=== PATIENT | female | born 1980 | race Caucasian/White ===

== ENCOUNTER → 2016-04-24 | Outpatient (CLI) | payer BC ==
--- NOTE | 2016-04-24 08:45 | US ---
EXAMINATION TYPE: US gallbladder DATE OF EXAM: 04/24/2016 8:28 AM COMPARISON: NONE CLINICAL HISTORY: RUQ Pain R10.11. chest pain, EXAM MEASUREMENTS: Liver Length: 12.6 cm Gallbladder Wall: 0.2 cm CBD: 0.4 cm Right Kidney: 10.4 x 4.7 x 4.6 cm TECHNOLOGIST IMPRESSION: Pancreas: wnl visualized portions. Liver: wnl Gallbladder: No stones seen Evidence for sonographic Gottlieb's sign: No CBD: wnl Right Kidney: No hydronephrosis or masses seen Pancreas is not well seen on images saved, shadowing from overlying bowel gas is present. IMPRESSION: No shadowing mobile gallstones or ultrasound evidence for acute cholecystitis.
--- NOTE | 2016-04-24 10:19 | FL ---
EXAMINATION TYPE: FL barium swallow DATE OF EXAM: 04/24/2016 9:44 AM CLINICAL HISTORY: Chest and right sided upper abdominal pain.. Periodic Dysphagia upper chest. Burnin g epigastric pain or reflux-like symptoms with some relief from medication. Severe upper right chest pain 2 weeks ago. TECHNIQUE: A double contrast esophagram is performed utilizing air and barium. A total of 42 second s of fluoroscopic time was utilized during procedure. COMPARISON: Same day right upper quadrant ultrasound and 2 view chest x-ray. FINDINGS: The esophagus shows normal motility and emptying into the stomach. No evidence of hiatal h ernia or stricture noted. No intraluminal mass or abnormal outpouching/diverticulum is seen. No signi ficant gastroesophageal reflux was seen during real time performance of this study. IMPRESSION: No significant abnormality is seen to account for patient's symptoms.
--- NOTE | 2016-04-24 10:37 | XR ---
EXAMINATION TYPE: XR chest 2V DATE OF EXAM: 04/24/2016 9:28 AM COMPARISON: Chest x-ray 18 May 2014 HISTORY: Chest pain TECHNIQUE: Frontal and lateral views of the chest are obtained. FINDINGS: There is no focal air space opacity, pleural effusion, or pneumothorax seen. The cardiac silhouette size is within normal limits. The osseous structures are intact. IMPRESSION: No acute cardiopulmonary process.
== END | disposition home or self-care (01) ==
LOC: RADUSWWP 08:08
PROVIDERS: ATTEND Family Medicine
DX: R07.9 Chest pain, unspecified (principal); R10.11 Right upper quadrant pain
CPT/HCPCS: 71020; 74220; 76705

== ENCOUNTER → 2016-04-26 | Outpatient (CLI) | payer BC ==
--- NOTE | 2016-04-27 10:16 | ECHOF ---
Referral Reason:R07.89 CHEST PAIN Z12.31 MEASUREMENTS -------- HEIGHT: 170.2 cm WEIGHT: 92.5 kg BP: RVIDd: 2.7 cm (< 3.3) IVSd: 0.8 cm (0.6 - 1.1) LVIDd: 4.2 cm (3.9 - 5.3) LVPWd: 1.1 cm (0.6 - 1.1) IVSs: 1.0 cm LVIDs: 3.2 cm LVPWs: 1.2 cm LA Diam: 3.2 cm (2.7 - 3.8) LAESV Index (A-L): 31.71 ml/m Ao Diam: 3.0 cm (2.0 - 3.7) AV Cusp: 2.1 cm (1.5 - 2.6) LA Diam: 3.2 cm (2.7 - 3.8) MV EXCURSION: 20.824 mm (> 18.000) MV EF SLOPE: 141 mm/s (70 - 150) EPSS: 0.5 cm MV E Osmani: 0.81 m/s MV DecT: 138 ms MV A Osmani: 0.54 m/s MV E/A Ratio: 1.51 RAP: 5.00 mmHg RVSP: 37.16 mmHg FINDINGS -------- Sinus rhythm. This was a technically good study. LV size, wall thickness and systolic function are normal, with an EF greater than 55%. The right ventricle is normal in size. LA is midly dilated 29-33ml/m2. The right atrial size is normal. The aortic valve is trileaflet, and appears structurally normal. No aortic stenosis or regurgitation. Mild mitral regurgitation is present. Mild tricuspid regurgitation present. There is mild pulmonary hypertension. The right ventricular systolic pressure, as measured by Doppler, is 37.16mmHg. There is no pulmonic regurgitation present. The aortic root size is normal. There is no pericardial effusion. CONCLUSIONS -------- 1. LV size, wall thickness and systolic function are normal, with an EF greater than 55%. 2. LA is midly dilated 29-33ml/m2. 3. Mild mitral regurgitation is present. 4. Mild tricuspid regurgitation present. 5. There is mild pulmonary hypertension. 6. The right ventricular systolic pressure, as measured by Doppler, is 37.16mmHg. RN GERIATRIC: Halina Mercado RDCS
--- NOTE | 2016-04-30 06:51 | MM ---
Reason for exam: screening (asymptomatic). Baseline mammogram. History: Family history of breast cancer in maternal grandmother at age 60. Physical Findings: Nurse did not find any significant physical abnormalities on exam. MG Screening Mammo w CAD Bilateral CC and MLO view(s) were taken. There are scattered fibroglandular densities. There is no discrete abnormality. ASSESSMENT: Negative, BI-RAD 1 RECOMMENDATION: Routine screening mammogram of both breasts at age 39. (unless clinical indication to start sooner)
== END | disposition home or self-care (01) ==
LOC: RADMAMWWP 14:12
PROVIDERS: ATTEND Family Medicine
DX: Z12.31 Encounter for screening mammogram for malignant neoplasm of breast (principal); I08.1 Rheumatic disorders of both mitral and tricuspid valves; I27.2 Other secondary pulmonary hypertension
CPT/HCPCS: 93306; G0202

== ENCOUNTER → 2018-10-24 | Outpatient (CLI) | payer BC ==
--- NOTE | 2018-10-24 09:55 | XR ---
EXAMINATION TYPE: XR sinus DATE OF EXAM: 10/24/2018 CLINICAL HISTORY: pain Four views of the paranasal sinuses are submitted. Paranasal sinuses demonstrate normal aeration and development. No air-fluid levels are seen. There is no evidence for mucosal thickening. Nasal sep michael is midline. No evidence for bony destructive process. IMPRESSION: Unremarkable evaluation of the paranasal sinuses.
== END | disposition home or self-care (01) ==
LOC: RADXRMAIN 08:14
PROVIDERS: ATTEND Family Medicine
DX: R51 Headache (principal)
CPT/HCPCS: 70220

== ENCOUNTER 2019-04-07 00:33 | Emergency (ER) | payer BC ==
[2019-04-07 00:43] VITALS: RESP 18
[2019-04-07 01:00] LABS: Appearance,Urine Cloudy (Clear); Bacteria,Urine Rare /hpf; Bilirubin,Urine Negative (Negative); Blood,Urine Moderate (Negative); Color,Urine Yellow; Glucose,Urine (UA) Negative (Negative); Ketones,Urine Negative (Negative); Leukocyte Esterase,Urine Trace (Negative); Mucus,Urine Occasional /hpf; Nitrite,Urine Negative (Negative); PH, Urine 8.5 (5.0-8.0); Protein,Urine 1+ (Negative); RBC,Urine >182 /hpf (0-5); Specific Gravity,Urine 1.024 (1.001-1.035); Squamous Epithelial Cell,Urine 3 /hpf (0-4); Urobilinogen,Urine <2.0 mg/dL (<2.0); WBC,Urine 2 /hpf (0-5)
[2019-04-07] MEDS ORDERED: SODIUM CHLORIDE 0.9% 1,000 ML IV STA (01:02)
[2019-04-07] MEDS ORDERED: KETOROLAC 30 MG/ML 1 ML VIAL IVP STA (01:02)
[2019-04-07] MEDS ORDERED: ONDANSETRON 4 MG/2 ML VIAL IVP STA (01:03)
--- NOTE | 2019-04-07 01:03 | ED ---
Abdominal Pain HPI - General Chief Complaint: Abdominal Pain Stated Complaint: L Side Pain Time Seen by Provider: 04/07/19 00:43 Source: patient Mode of arrival: ambulatory Limitations: no limitations - History of Present Illness Initial Comments: Patient is a 39-year-old male presenting to the emergency department with a chief complaint of flank pain. Patient reports she woke up this morning with sudden onset of left-sided flank pain that is radiating along the left lower quadrant to the groin region. Patient does report nausea but denies any vom iting or diarrhea. Patient states the pain is not related to oral intake. Patient reports seeing a position helps alleviate some of the pain. Patient denies any night sweats fevers or chills. Patient does report taking pxiu-[id number] analgesics with minimal improvement. Patient has no history of kidney stones. Patient does report increased frequency since the pain started. Patient denies hematuria, hematochezia or melena. Denies dysuria. - Related Data Home Medications Medication Instructions Recorded Confirmed Famotidine [Pepcid] 20 mg PO BID PRN 05/10/14 05/26/14 Ibuprofen [Motrin] 800 mg PO TID 05/10/14 05/26/14 Previous Rx's Medication Instructions Recorded HYDROcodone/APAP 7.5-325MG [[place] 1 - 2 each PO Q6HR PRN #90 tab 05/21/14 7.5-325] Ketorolac [Toradol] 10 mg PO Q8HR #15 tab 04/07/19 Tamsulosin [Flomax] 0.4 mg PO DAILY #7 cap 04/07/19 Allergies Allergy/AdvReac Type Severity Reaction Status Date / Time No Known Allergies Allergy Verified 04/07/19 00:42 Review of Systems ROS Statement: Those systems with pertinent positive or pertinent negative responses have been documented in the HPI. ROS Other: All systems not noted in ROS Statement are negative. Past Medical History Past Medical History: GERD/Reflux, Osteoarthritis (OA), Sleep Apnea/CPAP/BIPAP Additional Past Medical History / Comment(s): 05/18/14 Pt admitted to floor s/p surgery. Other HX: DOES NOT USE HER C-PAP, CHRONIC BACK PAIN- HAS BACK BRACE that she uses if needed. STATES DIARRHEA LAST MONTH WITH BLOOD IN STOOL. STATES CURRENT URINE INFECTION-ON MACROBID and completed it on Friday05/16/14 AND WILL REPEAT UA 05/16/14. DENIES PAIN OR BURING WITH URINATION. History of Any Multi-Drug Resistant Organisms: None Reported Past Surgical History: Back Surgery Additional Past Surgical History / Comment(s): SEPTOPLASTY, LAMINECTOMY. 05/18/14 Revision laminectomy L4-5 posterior lumbar decompression fusion transforaminal lumbar interbody fusion L4-L5 with cell saver, iliac crest bone graft. Past Anesthesia/Blood Transfusion Reactions: No Reported Reaction Past Psychological History: Depression Smoking Status: Never smoker Past Alcohol Use History: Rare Past Drug Use History: None Reported - Past Family History Father Family Medical History: Coronary Artery Disease (CAD) (Father's 6-year-old has history of coronary artery disease with coronary artery bypass graft 2, 3 back surgery.), Hyperlipidemia, Hypertension, Myocardial Infarction (AK) Additional Family Medical History / Comment(s): 3 back surgeries, Cabg x 2, hernia surgeries, numerous AK's. Mother Family Medical History: No Reported History (Mother is 55-year-old has no major medical problem.) Sister(s) Family Medical History: Musculoskeletal Disorder (One sister with the chronic low back pain status post lumbar surgery as well) Son(s) Family Medical History: No Reported History (Patient has one son no major medical problem) Daughter(s) Family Medical History: No Reported History (Patient has one daughter no major medical problem.) General Exam Limitations: no limitations General appearance: alert, in no apparent distress Head exam: Present: atraumatic, normocephalic, normal inspection Eye exam: Present: normal appearance Pupils: Present: normal accommodation ENT exam: Present: normal exam Neck exam: Present: normal inspection, full ROM Respiratory exam: Present: normal lung sounds bilaterally Cardiovascular Exam: Present: regular rate, normal rhythm, normal heart sounds GI/Abdominal exam: Present: soft, tenderness (Left lower quadrant area and left flank pain.). Absent: distended Extremities exam: Present: normal inspection, full ROM Back exam: Present: normal inspection, full ROM, CVA tenderness (L) Neurological exam: Present: alert, oriented X3 Psychiatric exam: Present: normal affect, normal mood Skin exam: Present: warm, dry, intact, normal color Course Vital Signs 04/07/19 04/07/19 00:41 02:25 Temperature 98.6 F 99.1 F Pulse Rate 73 61 Respiratory 18 18 Rate Blood Pressure 132/72 113/69 O2 Sat by Pulse 100 99 Oximetry Medical Decision Making - Medical Decision Making Patient is a 39-year-old female presenting to emergency Department with a chief complaint of flank pain. This was sudden onset of pain that started several hours prior to arrival. Patient given antiemetics, analgesia and fluids. UA is indicative of elevated red blood cells with no elevation in white blood cells. Patient does have microscopic hematuria. Patient denies present classically for a kidney stone. UA is also supporting this notion. On reevaluation patient reports nausea and the pain have almost completely resolved. Patient advised to follow-up with a urologist patient advised to drink left of fluids. Patient was discharged with Toradol as she declined any opiate analgesia. She was also given Flomax. Strict return parameters were thoroughly discussed with patient was understanding and agreeable. Case discussed with physician. - Lab Data Lab Results 04/07/19 04/07/19 Range/Units 00:25 00:25 Urine Color Yellow Urine Appearance Cloudy H (Clear) Urine pH 8.5 H (5.0-8.0) Ur Specific [place] 1.024 (1.001-1.035) Urine Protein 1+ H (Negative) Urine Glucose (UA) Negative (Negative) Urine Ketones Negative (Negative) Urine Blood Moderate H (Negative) Urine Nitrite Negative (Negative) Urine Bilirubin Negative (Negative) Urine Urobilinogen <2.0 (<2.0) mg/dL Ur Leukocyte Esterase Trace H (Negative) Urine RBC >182 H (0-5) /hpf Urine WBC 2 (0-5) /hpf Ur Squamous Epith Cells 3 (0-4) /hpf Urine Bacteria Rare H (None) /hpf Urine Mucus Occasional H (None) /hpf Urine HCG, Qual Not Detected (Not Detectd) Disposition Clinical Impression: Left flank pain, Renal stone Disposition: HOME SELF-CARE Condition: Stable Instructions (If sedation given, give patient instructions): Kidney Stones (ED) Additional Instructions: Please take prescribed medication as directed. Please follow-up with urology. Make sure to drink lots of fluids. Return to emergency department if symptoms worsen. Prescriptions: Tamsulosin [Flomax] 0.4 mg PO DAILY #7 cap Ketorolac [Toradol] 10 mg PO Q8HR #15 tab Is patient prescribed a controlled substance at d/c from ED?: No Referrals: Anand Perez DO [Primary Care Provider] - 1-2 days Davie Velasquez MD [STAFF PHYSICIAN] - 1-2 days Time of Disposition: 02:08
--- NOTE | 2019-04-07 01:52 | US ---
EXAMINATION TYPE: US renals and bladder DATE OF EXAM: 04/07/2019 COMPARISON: US ABD CLINICAL HISTORY: Rule out hydronephrosis left side. Left flank pain x 2.5 hours. Rule out hydronephr osis left side. EXAM MEASUREMENTS: Right Kidney: 9.7 x 5.5 x 4.4 cm Left Kidney: 10.2 x 4.9 x 5.3 cm Right Kidney: Isoechoic area measured 2.6 x 3.4 x 2.0 cm versus column of Juan Luis? Left Kidney: No hydronephrosis or masses seen. Patient gassy in this area. Bladder: Undistended. Unable to fully evaluate. Bilateral Jets seen: No IMPRESSION: No renal stone or obstruction. No evidence of a renal mass. Urinary bladder was empty during the exam . Right kidney unchanged compared to ultrasound exam of 04/24/2016.
[2019-04-07 02:29] VITALS: BP 113/69; PULSE 61; TEMP 99.1
[2019-04-07] MEDS ORDERED: TAMSULOSIN 0.4 MG CAP.ER.24H PO STA (02:38)
== END 2019-04-07 02:46 | disposition home or self-care (01) ==
LOC: EC 00:33
DX: N20.0 Calculus of kidney (principal); K21.9 Gastro-esophageal reflux disease without esophagitis; M19.90 Unspecified osteoarthritis, unspecified site; Z79.1 Long term (current) use of non-steroidal anti-inflammatories (NSAID); Z79.899 Other long term (current) drug therapy; Z98.1 Arthrodesis status
CPT/HCPCS: 81001; 81025; 76770; 99284; 96374; 96375; 96361; J2405; J1885

== ENCOUNTER 2019-11-12 10:20 | Emergency (ER) | payer BC ==
[2019-11-12 10:35] VITALS: RESP 16
[2019-11-12] MEDS ORDERED: SODIUM CHLORIDE 0.9% 500 ML 500 ML IV STA (10:46)
--- NOTE | 2019-11-12 10:53 | ED ---
General Adult HPI - General Chief complaint: Arrhythmia/Palpitations Stated complaint: Chest pain heart racing Time Seen by Provider: 11/12/19 10:29 Source: patient Mode of arrival: wheelchair Limitations: no limitations - History of Present Illness Initial comments: Patient is a 39-year-old female presenting to the emergency Department with complaints of palpitations 2 days. Patient states she is also been having intermittent nausea, sweats and chills as well as an episode of diarrhea 5 days ago. Patient feels like her symptoms started with the diarrhea 5 days ago which lasted only 1-2 days, that has since cleared. Patient's then states she's been noticing her sweating, having chills as well as having palpitations in the middle of her chest. She denies any chest pains with these palpitations but feels like she is mildly short of breath. She does have history of sleep apnea but states she has not been wearing her CPAP over the last few days secondary to sinus drainage. She also feels a slight sore throat but states she feels like it's from the sinus drainage. She is still complaining of nausea, no vomiting, no abdominal pain, no further diarrhea. She denies any urinary complaints. She states she does not secondary to starting her period in 2 days. She also felt like her fatigue and body aches could be due to her. That is supposed to start soon. She denies any sick contacts, she states she has been working from home and quarantining except for going to the grocery store. She denies any kind of cardiac history except during one surgery where she did stop breathing, they felt like it was secondary to her sleep apnea. She denies history of smoking, does not drink alcohol. She has no further complaints at this time. Upon arrival to the ER, patient is slightly febrile at 99.7, tachycardia at 109, rest of vitals normal. - Related Data Home Medications Medication Instructions Recorded Confirmed Ibuprofen [Motrin] 600 mg PO TID 05/10/14 11/12/19 Loratadine-Pseudoeph 5-120 mg 1 tab PO Q12HR PRN 11/12/19 11/12/19 [Claritin-D 12 Hour] Previous Rx's Medication Instructions Recorded Cephalexin [Keflex] 500 mg PO BID 5 Days #10 cap 11/12/19 Allergies Allergy/AdvReac Type Severity Reaction Status Date / Time No Known Allergies Allergy Verified 11/12/19 11:31 Review of Systems ROS Statement: Those systems with pertinent positive or pertinent negative responses have been documented in the HPI. ROS Other: All systems not noted in ROS Statement are negative. Past Medical History Past Medical History: GERD/Reflux, Osteoarthritis (OA), Sleep Apnea/CPAP/BIPAP Additional Past Medical History / Comment(s): 05/18/14 Pt admitted to floor s/p surgery. Other HX: DOES NOT USE HER C-PAP, CHRONIC BACK PAIN- HAS BACK BRACE that she uses if needed. STATES DIARRHEA LAST MONTH WITH BLOOD IN STOOL. STATES CURRENT URINE INFECTION-ON MACROBID and completed it on Friday05/16/14 AND WILL REPEAT UA 05/16/14. DENIES PAIN OR BURING WITH URINATION. History of Any Multi-Drug Resistant Organisms: None Reported Past Surgical History: Back Surgery Additional Past Surgical History / Comment(s): SEPTOPLASTY, LAMINECTOMY. 05/18/14 Revision laminectomy L4-5 posterior lumbar decompression fusion transforaminal lumbar interbody fusion L4-L5 with cell saver, iliac crest bone graft. Past Anesthesia/Blood Transfusion Reactions: No Reported Reaction Past Psychological History: Depression Smoking Status: Never smoker Past Alcohol Use History: None Reported, Rare Past Drug Use History: None Reported - Past Family History Father Family Medical History: Coronary Artery Disease (CAD) (Father's 6-year-old has history of coronary artery disease with coronary artery bypass graft 2, 3 back surgery.), Hyperlipidemia, Hypertension, Myocardial Infarction (HI) Additional Family Medical History / Comment(s): 3 back surgeries, Cabg x 2, hernia surgeries, numerous HI's. Mother Family Medical History: No Reported History (Mother is 55-year-old has no major medical problem.) Sister(s) Family Medical History: Musculoskeletal Disorder (One sister with the chronic low back pain status post lumbar surgery as well) Son(s) Family Medical History: No Reported History (Patient has one son no major medical problem) Daughter(s) Family Medical History: No Reported History (Patient has one daughter no major medical problem.) General Exam - General Exam Comments Initial Comments: GENERAL: Patient is well-developed and well-nourished. Patient is nontoxic and in no acute distress, slightly diaphoretic. HEAD: Atraumatic, normocephalic. EYES: Pupils equal round and reactive to light, extraocular movements intact, sclera anicteric, conjunctiva are normal. Eyelids were unremarkable. ENT: TMs normal, nares patent, oropharynx clear without exudates. Moist mucous membranes. NECK: Normal range of motion, supple without lymphadenopathy or JVD. LUNGS: Unlabored respirations. Breath sounds clear to auscultation bilaterally and e qual. No wheezes rales or rhonchi. HEART: Tachycardia rate and rhythm without murmurs, rubs or gallops. ABDOMEN: Soft, nontender, normoactive bowel sounds. No guarding, no rebound. No masses appreciated. : Deferred MUSCULOSKELETAL: Normal extremities with adequate strength and normal range of motion, no pitting or edema. No clubbing or cyanosis. NEUROLOGICAL: Patient is alert and oriented x 3. Motor and sensory are also intact. Cranial nerves II through XII grossly intact. Symmetrical smile. Normal speech, normal gait. PSYCH: Normal mood, normal affect. SKIN: Warm, Dry, normal turgor, no rashes or lesions noted. Limitations: no limitations Course Vital Signs 11/12/19 11/12/19 11/12/19 10:28 11:16 12:29 Temperature 99.7 F H 98.7 F Pulse Rate 109 H 92 81 Respiratory 16 16 16 Rate Blood Pressure 135/84 132/79 99/63 O2 Sat by Pulse 98 97 97 Oximetry EKG Findings - EKG Comments: EKG Findings:: Normal sinus rhythm, no signs of acute ischemia, ventricular rate 88, KS interval 146, QT 340. Similar to previous EKG in 2015. Medical Decision Making - Medical Decision Making Patient is a 39-year-old female here for chest palpitations for the past 2 days as well as having intermittent fevers, chills, nausea. She did arrive with a low-grade fever 99.7, slightly tachycardia at 109, slightly diaphoretic. She just taken 2 ibuprofen about an hour prior to arrival. Her EKG shows no significant abnormality, CBC, CMP, are normal. Patient's d-dimer slightly elevated at 1.71, troponin is normal. Chest x-ray and CTA revealed no significant abnormalities. Urine does show evidence of bacteria however patient did start. Today's other significant amount of RBCs. Influenza is negative, I did do a Covid test which is pending at this time. Patient was given fluids and states improvement in her symptoms. Her vital signs are completely stable. I discussed with patient that her symptoms could be related to a viral illness as well as a mild UTI. I recommended continue to quarantine until Covid test is back. Patient will take Keflex for her UTI. She'll follow up with her PCP. Patient is agreement with this plan of care. She is stable for discharge. Return parameters were discussed with the patient she verbalized understanding. Case discussed with Dr. Lopez. - Lab Data Result diagrams: 11/12/19 10:55 11/12/19 10:55 Lab Results 11/12/19 11/12/19 11/12/19 Range/Units 10:55 10:55 10:55 WBC 4.6 (3.8-10.6) k/uL RBC 4.68 (3.80-5.40) m/uL Hgb 13.3 (11.4-16.0) gm/dL Hct 40.1 (34.0-46.0) % MCV 85.6 (80.0-100.0) fL MCH 28.3 (25.0-35.0) pg MCHC 33.1 (31.0-37.0) g/dL RDW 13.8 (11.5-15.5) % Plt Count 313 (150-450) k/uL Neutrophils % 74 % Lymphocytes % 15 % Monocytes % 5 % Eosinophils % 1 % Basophils % 1 % Neutrophils # 3.4 (1.3-7.7) k/uL Lymphocytes # 0.7 L (1.0-4.8) k/uL Monocytes # 0.2 (0-1.0) k/uL Eosinophils # 0.0 (0-0.7) k/uL Basophils # 0.1 (0-0.2) k/uL PT 10.0 (9.0-12.0) sec INR 1.0 (<1.2) APTT 22.9 (22.0-30.0) sec D-Dimer 1.71 H (<0.60) mg/L FEU Sodium (137-145) mmol/L Potassium (3.5-5.1) mmol/L Chloride (98-107) mmol/L Carbon Dioxide (22-30) mmol/L Anion Gap mmol/L BUN (7-17) mg/dL Creatinine (0.52-1.04) mg/dL Est GFR (CKD-EPI)AfAm (>60 ml/min/1.73 sqM) Est GFR (CKD-EPI)NonAf (>60 ml/min/1.73 sqM) Glucose (74-99) mg/dL Plasma Lactic Acid Lee (0.7-2.0) mmol/L Calcium (8.4-10.2) mg/dL Total Bilirubin (0.2-1.3) mg/dL AST (14-36) U/L ALT (4-34) U/L Alkaline Phosphatase (38-126) U/L Troponin I (0.000-0.034) ng/mL Total Protein (6.3-8.2) g/dL Albumin (3.5-5.0) g/dL Urine Color Yellow Urine Appearance Cloudy H (Clear) Urine pH 5.5 (5.0-8.0) Ur Specific [place] 1.021 (1.001-1.035) Urine Protein 1+ H (Negative) Urine Glucose (UA) Negative (Negative) Urine Ketones 1+ H (Negative) Urine Blood Large H (Negative) Urine Nitrite Negative (Negative) Urine Bilirubin Negative (Negative) Urine Urobilinogen <2.0 (<2.0) mg/dL Ur Leukocyte Esterase Large H (Negative) Urine RBC >182 H (0-5) /hpf Urine WBC 33 H (0-5) /hpf Ur Squamous Epith Cells 5 H (0-4) /hpf Urine Bacteria Rare H (None) /hpf Urine Mucus Few H (None) /hpf Urine HCG, Qual (Not Detectd) Influenza Type A RNA (Not Detectd) Influenza Type B (PCR) (Not Detectd) 11/12/19 11/12/19 11/12/19 Range/Units 10:55 10:55 10:55 WBC (3.8-10.6) k/uL RBC (3.80-5.40) m/uL Hgb (11.4-16.0) gm/dL Hct (34.0-46.0) % MCV (80.0-100.0) fL MCH (25.0-35.0) pg MCHC (31.0-37.0) g/dL RDW (11.5-15.5) % Plt Count (150-450) k/uL Neutrophils % % Lymphocytes % % Monocytes % % Eosinophils % % Basophils % % Neutrophils # (1.3-7.7) k/uL Lymphocytes # (1.0-4.8) k/uL Monocytes # (0-1.0) k/uL Eosinophils # (0-0.7) k/uL Basophils # (0-0.2) k/uL PT (9.0-12.0) sec INR (<1.2) APTT (22.0-30.0) sec D-Dimer (<0.60) mg/L FEU Sodium 136 L (137-145) mmol/L Potassium 4.2 (3.5-5.1) mmol/L Chloride 106 (98-107) mmol/L Carbon Dioxide 21 L (22-30) mmol/L Anion Gap 9 mmol/L BUN 10 (7-17) mg/dL Creatinine 0.99 (0.52-1.04) mg/dL Est GFR (CKD-EPI)AfAm 83 (>60 ml/min/1.73 sqM) Est GFR (CKD-EPI)NonAf 72 (>60 ml/min/1.73 sqM) Glucose 96 (74-99) mg/dL Plasma Lactic Acid Lee 1.1 (0.7-2.0) mmol/L Calcium 9.2 (8.4-10.2) mg/dL Total Bilirubin 0.7 (0.2-1.3) mg/dL AST 35 (14-36) U/L ALT 24 (4-34) U/L Alkaline Phosphatase 70 (38-126) U/L Troponin I (0.000-0.034) ng/mL Total Protein 7.4 (6.3-8.2) g/dL Albumin 4.1 (3.5-5.0) g/dL Urine Color Urine Appearance (Clear) Urine pH (5.0-8.0) Ur Specific [place] (1.001-1.035) Urine Protein (Negative) Urine Glucose (UA) (Negative) Urine Ketones (Negative) Urine Blood (Negative) Urine Nitrite (Negative) Urine Bilirubin (Negative) Urine Urobilinogen (<2.0) mg/dL Ur Leukocyte Esterase (Negative) Urine RBC (0-5) /hpf Urine WBC (0-5) /hpf Ur Squamous Epith Cells (0-4) /hpf Urine Bacteria (None) /hpf Urine Mucus (None) /hpf Urine HCG, Qual Not Detected (Not Detectd) Influenza Type A RNA (Not Detectd) Influenza Type B (PCR) (Not Detectd) 11/12/19 11/12/19 Range/Units 10:55 10:55 WBC (3.8-10.6) k/uL RBC (3.80-5.40) m/uL Hgb (11.4-16.0) gm/dL Hct (34.0-46.0) % MCV (80.0-100.0) fL MCH (25.0-35.0) pg MCHC (31.0-37.0) g/dL RDW (11.5-15.5) % Plt Count (150-450) k/uL Neutrophils % % Lymphocytes % % Monocytes % % Eosinophils % % Basophils % % Neutrophils # (1.3-7.7) k/uL Lymphocytes # (1.0-4.8) k/uL Monocytes # (0-1.0) k/uL Eosinophils # (0-0.7) k/uL Basophils # (0-0.2) k/uL PT (9.0-12.0) sec INR (<1.2) APTT (22.0-30.0) sec D-Dimer (<0.60) mg/L FEU Sodium (137-145) mmol/L Potassium (3.5-5.1) mmol/L Chloride (98-107) mmol/L Carbon Dioxide (22-30) mmol/L Anion Gap mmol/L BUN (7-17) mg/dL Creatinine (0.52-1.04) mg/dL Est GFR (CKD-EPI)AfAm (>60 ml/min/1.73 sqM) Est GFR (CKD-EPI)NonAf (>60 ml/min/1.73 sqM) Glucose (74-99) mg/dL Plasma Lactic Acid Lee (0.7-2.0) mmol/L Calcium (8.4-10.2) mg/dL Total Bilirubin (0.2-1.3) mg/dL AST (14-36) U/L ALT (4-34) U/L Alkaline Phosphatase (38-126) U/L Troponin I <0.012 (0.000-0.034) ng/mL Total Protein (6.3-8.2) g/dL Albumin (3.5-5.0) g/dL Urine Color Urine Appearance (Clear) Urine pH (5.0-8.0) Ur Specific [place] (1.001-1.035) Urine Protein (Negative) Urine Glucose (UA) (Negative) Urine Ketones (Negative) Urine Blood (Negative) Urine Nitrite (Negative) Urine Bilirubin (Negative) Urine Urobilinogen (<2.0) mg/dL Ur Leukocyte Esterase (Negative) Urine RBC (0-5) /hpf Urine WBC (0-5) /hpf Ur Squamous Epith Cells (0-4) /hpf Urine Bacteria (None) /hpf Urine Mucus (None) /hpf Urine HCG, Qual (Not Detectd) Influenza Type A RNA Not Detected (Not Detectd) Influenza Type B (PCR) Not Detected (Not Detectd) Disposition Clinical Impression: UTI (urinary tract infection), Viral illness, Heart palpitations Disposition: HOME SELF-CARE Condition: Stable Instructions (If sedation given, give patient instructions): Urinary Tract Infection in Women (ED) Additional Instructions: Please return to the Emergency Department if symptoms worsen or any other concerns. COVID test is pending, continued to quarantine until results are given. Continue with ibuprofen for fever, discomfort. Take antibiotic as prescribed for UTI. Follow-up with PCP. Prescriptions: Cephalexin [Keflex] 500 mg PO BID 5 Days #10 cap Is patient prescribed a controlled substance at d/c from ED?: No Referrals: Tee Lawson DO [Primary Care Provider] - 1-2 days
[2019-11-12 11:11] LABS: Basophils # (A) 0.1 k/uL (0-0.2); Basophils % (A) 1 %; Eosinophils % (A) 1 %; HCT 40.1 % (34.0-46.0); HGB 13.3 gm/dL (11.4-16.0); Lymphocytes # (A) 0.7 k/uL (1.0-4.8); Lymphocytes % (A) 15 %; MCH 28.3 pg (25.0-35.0); MCHC 33.1 g/dL (31.0-37.0); MCV 85.6 fL (80.0-100.0); Monocytes # (A) 0.2 k/uL (0-1.0); Monocytes % (A) 5 %; Neutrophils # (A) 3.4 k/uL (1.3-7.7); Neutrophils % (A) 74 %; Platelet Count 313 k/uL (150-450); RBC 4.68 m/uL (3.80-5.40); RDW 13.8 % (11.5-15.5); WBC 4.6 k/uL (3.8-10.6)
[2019-11-12 11:17] LABS: Appearance,Urine Cloudy (Clear); Bacteria,Urine Rare /hpf; Bilirubin,Urine Negative (Negative); Blood,Urine Large (Negative); Color,Urine Yellow; Glucose,Urine (UA) Negative (Negative); Ketones,Urine 1+ (Negative); Leukocyte Esterase,Urine Large (Negative); Mucus,Urine Few /hpf; Nitrite,Urine Negative (Negative); PH, Urine 5.5 (5.0-8.0); Protein,Urine 1+ (Negative); RBC,Urine >182 /hpf (0-5); Specific Gravity,Urine 1.021 (1.001-1.035); Squamous Epithelial Cell,Urine 5 /hpf (0-4); Urobilinogen,Urine <2.0 mg/dL (<2.0); WBC,Urine 33 /hpf (0-5)
[2019-11-12 11:22] LABS: Albumin 4.1 g/dL (3.5-5.0); Calcium 9.2 mg/dL (8.4-10.2); Potassium 4.2 mmol/L (3.5-5.1); Total Bilirubin 0.7 mg/dL (0.2-1.3); Total Protein 7.4 g/dL (6.3-8.2)
[2019-11-12 11:27] LABS: Partial Thromboplastin Time 22.9 sec (22.0-30.0)
[2019-11-12 11:29] LABS: D-Dimer 1.71 mg/L FEU (<0.60)
--- NOTE | 2019-11-12 11:37 | XR ---
EXAMINATION TYPE: XR chest 2V DATE OF EXAM: 11/12/2019 COMPARISON: 04/24/2016 HISTORY: 39 year-old female fever and palpitations TECHNIQUE: PA and lateral views FINDINGS: The cardiomediastinal silhouette, aorta, and pulmonary vasculature are within normal limits. Lungs an d pleural spaces are clear. IMPRESSION: No acute cardiopulmonary process.
--- NOTE | 2019-11-12 12:26 | CT ---
EXAMINATION TYPE: CT chest angio for PE DATE OF EXAM: 11/12/2019 COMPARISON: Chest radiograph 11/12/2019. HISTORY: Chest pain and shortness of breath. CT DLP: 605.7 mGycm Automated exposure control for dose reduction was used. CONTRAST: CT Chest for pulmonary embolism performed with with IV Contrast, patient injected with 100 mL of Isov ue 370. MIP images generated and utilized on a separate workstation. FINDINGS: LUNGS: The lungs are grossly clear, there is no concerning parenchymal mass or nodule identified. Min imal left basilar atelectasis. There is no pleural effusion or pneumothorax seen. The tracheobronch ial tree is patent. MEDIASTINUM: There is satisfactory enhancement of the pulmonary artery and its branches, there is no CT evidence for pulmonary embolism. There are no greater than 1 cm hilar or mediastinal lymph nodes. Cardiac size normal. No pericardial effusion is seen. No thoracic aortic aneurysm. No thoracic ao rtic dissection. OTHER: No adrenal nodule. Degenerative changes of the spine. IMPRESSION: 1. No pulmonary embolus. 2. No thoracic aortic aneurysm or dissection. 3. No acute pulmonary process.
[2019-11-12 12:30] VITALS: BP 99/63; PULSE 81; TEMP 98.7
== END 2019-11-12 13:10 | disposition home or self-care (01) ==
LOC: EC 10:20
DX: Z20.828 Contact with and (suspected) exposure to other viral communicable diseases (principal); N39.0 Urinary tract infection, site not specified; B34.9 Viral infection, unspecified; R00.2 Palpitations; R19.7 Diarrhea, unspecified; R00.0 Tachycardia, unspecified; M19.90 Unspecified osteoarthritis, unspecified site; G47.33 Obstructive sleep apnea (adult) (pediatric); Z79.1 Long term (current) use of non-steroidal anti-inflammatories (NSAID); Z99.89 Dependence on other enabling machines and devices; Z98.1 Arthrodesis status
CPT/HCPCS: 99285 ×2; 36415; 93005; 85379; 80053; 83605; 84484; 85025; 85610; 85730; 81001; 81025; 87086; 87502; 71046; 71275; U0003; Q9967

== ENCOUNTER → 2021-03-08 | Outpatient (CLI) | payer BC ==
--- NOTE | 2021-03-12 10:45 | MM ---
Reason for exam: screening (asymptomatic). Last mammogram was performed 4 years and 10 months ago. History: Family history of breast cancer in maternal grandmother at age 60. Physical Findings: A clinical breast exam by your physician is recommended on an annual basis and results should be correlated with mammographic findings. MG Screening Mammo w CAD Bilateral CC and MLO view(s) were taken. XCCL view(s) were taken of the left breast. Prior study comparison: April 26, 2016, bilateral MG screening mammo w CAD. There are scattered fibroglandular densities. New nodularity central left breast. ASSESSMENT: Incomplete: need additional imaging evaluation, BI-RAD 0 RECOMMENDATION: Special view mammogram of the left breast. (3D) If lesion persists on supplemental views, image directed ultrasound is recommended. [facility] will attempt to contact patient to return for supplemental views and ultrasound if indicated.
== END | disposition home or self-care (01) ==
LOC: RADMAMWWP 08:15
PROVIDERS: ATTEND Family Medicine
DX: Z12.31 Encounter for screening mammogram for malignant neoplasm of breast (principal); Z80.3 Family history of malignant neoplasm of breast
CPT/HCPCS: 77067

== ENCOUNTER → 2021-03-14 | Outpatient (CLI) | payer BC ==
--- NOTE | 2021-03-14 09:11 | MM ---
Reason for exam: additional evaluation requested from abnormal screening. Last mammogram was performed less than 1 month ago. History: Family history of breast cancer in maternal grandmother at age 60. Physical Findings: Nurse did not find any significant physical abnormalities on exam. MG Work Up Mamm w CAD LT Spot compression CC, spot compression MLO, and ML view(s) were taken of the left breast. Prior study comparison: March 08, 2021, bilateral MG screening mammo w CAD. April 26, 2016, bilateral MG screening mammo w CAD. There are scattered fibroglandular densities. The central focal asymmetry does not persist on spot CC or lateral. Some density remains on spot MLO and can be reassessed in 6 months. These results were verbally communicated with the patient and result sheet given to the patient on 03/14/21. ASSESSMENT: Probably benign, BI-RAD 3 RECOMMENDATION: Follow-up diagnostic mammogram of the left breast in 6 months.
== END | disposition home or self-care (01) ==
LOC: RADMAMWWP 07:30
PROVIDERS: ATTEND Family Medicine
DX: R92.8 Other abnormal and inconclusive findings on diagnostic imaging of breast (principal); Z80.3 Family history of malignant neoplasm of breast
CPT/HCPCS: 77065

== ENCOUNTER → 2021-11-19 | Outpatient (CLI) | payer BC ==
--- NOTE | 2021-11-19 10:42 | MM ---
Reason for Exam: Follow-up at short interval from prior study. Last screening mammogram was performed 9 month(s) ago. Patient History: Menarche at age 13. First Full-Term at age 24. Maternal grandmother had breast cancer, age 60. Last menstrual period: 11/04/2021 Risk Values: Nery 5 year model risk: 0.7%. NCI Lifetime model risk: 10.0%. Prior Study Comparison: 04/26/2016 Bilateral Screening Mammogram, [facility]. 03/08/2021 Bilateral Screening Mammogram, [facility]. 03/14/2021 Left Diagnostic Mammogram, [facility]. Tissue Density: Left: There are scattered fibroglandular densities. Findings: Analyzed By CAD. No new suspicious mass or worrisome cluster microcalcifications. Previously demonstrated central focal asymmetry is not definitively visualized on today's exam. Overall Assessment: Benign, BI-RAD 2 Management: Screening Mammogram of both breasts in 3 months. A clinical breast exam by your physician is recommended on an annual basis and results should be correlated with mammographic findings. This exam should not preclude additional follow-up of suspicious palpable abnormalities. Results were given to the patient verbally at the time of exam. Electronically signed and approved by: Bryan Nelson D.O.
== END | disposition home or self-care (01) ==
LOC: RADMAMWWP 10:20
PROVIDERS: ATTEND Family Medicine
DX: R92.8 Other abnormal and inconclusive findings on diagnostic imaging of breast (principal); Z80.3 Family history of malignant neoplasm of breast
CPT/HCPCS: 77061; 77065

== ENCOUNTER 2023-04-02 20:52 | Emergency (ER) | payer BC ==
[2023-04-02 21:24] VITALS: TEMP 97.5
--- NOTE | 2023-04-02 21:49 | XR ---
EXAMINATION TYPE: XR soft tissue neck DATE OF EXAM: 04/02/2023 9:45 PM CLINICAL INDICATION:Female, 42 years old with history of SOB; COMPARISON: None TECHNIQUE: The soft tissues of the neck were imaged in frontal and lateral views. FINDINGS: The prevertebral soft tissues are unremarkable. There is no evidence of mass effect or trac heal deviation. No acute osseous abnormality demonstrated. No evidence of subglottic narrowing. The palatine tonsils appear thickened. IMPRESSION: 1. No significant abnormality identified within the soft tissues of the neck. 2. Thickened palatine tonsils correlate for tonsillitis.
[2023-04-02] MEDS ORDERED: GLUCAGON 1 MG/ML VIAL IM STA (23:11)
--- NOTE | 2023-04-02 23:13 | ED ---
Skin/Abscess/FB HPI - General Chief complaint: Skin/Abscess/Foreign Body Stated complaint: Choking Time Seen by Provider: 04/02/23 23:12 Source: patient Mode of arrival: ambulatory Limitations: no limitations - History of Present Illness Initial comments: 42-year-old female presenting with chief complaint of chicken meat stuck in her throat. This occurred while eating soup this evening. Patient has had issues with swallowing in the past has not followed GI scope. She tried drinking soda at home to dislodge the food bolus, but was unable to dislodge the food. She admits to constipation. She is having no difficulty breathing. She can handle her secretions - Related Data Home Medications Medication Instructions Recorded Confirmed Ibuprofen [Motrin] 600 mg PO TID 05/10/14 11/12/19 Loratadine-Pseudoeph 5-120 mg 1 tab PO Q12HR PRN 11/12/19 11/12/19 [Claritin-D 12 Hour] Previous Rx's Medication Instructions Recorded Cephalexin [Keflex] 500 mg PO BID 5 Days #10 cap 11/12/19 Allergies Allergy/AdvReac Type Severity Reaction Status Date / Time No Known Allergies Allergy Verified 04/02/23 21:16 Review of Systems ROS Statement: Those systems with pertinent positive or pertinent negative responses have been documented in the HPI. ROS Other: All systems not noted in ROS Statement are negative. Past Medical History Past Medical History: GERD/Reflux, Osteoarthritis (OA), Sleep Apnea/CPAP/BIPAP Additional Past Medical History / Comment(s): 05/18/14 Pt admitted to floor s/p surgery. Other HX: DOES NOT USE HER C-PAP, CHRONIC BACK PAIN- HAS BACK BRACE that she uses if needed. STATES DIARRHEA LAST MONTH WITH BLOOD IN STOOL. STATES CURRENT URINE INFECTION-ON MACROBID and completed it on Friday05/16/14 AND WILL REPEAT UA 05/16/14. DENIES PAIN OR BURING WITH URINATION. History of Any Multi-Drug Resistant Organisms: None Reported Past Surgical History: Back Surgery Additional Past Surgical History / Comment(s): SEPTOPLASTY, LAMINECTOMY. 05/18/14 Revision laminectomy L4-5 posterior lumbar decompression fusion transforaminal lumbar interbody fusion L4-L5 with cell saver, iliac crest bone graft. Past Anesthesia/Blood Transfusion Reactions: No Reported Reaction Past Psychological History: Depression Smoking Status: Never smoker Past Alcohol Use History: None Reported, Rare Past Drug Use History: None Reported - Past Family History Father Family Medical History: Coronary Artery Disease (CAD) (Father's 6-year-old has history of coronary artery disease with coronary artery bypass graft 2, 3 back surgery.), Hyperlipidemia, Hypertension, Myocardial Infarction (WA) Additional Family Medical History / Comment(s): 3 back surgeries, Cabg x 2, hernia surgeries, numerous WA's. Mother Family Medical History: No Reported History (Mother is 55-year-old has no major medical problem.) Sister(s) Family Medical History: Musculoskeletal Disorder (One sister with the chronic low back pain status post lumbar surgery as well) Son(s) Family Medical History: No Reported History (Patient has one son no major medical problem) Daughter(s) Family Medical History: No Reported History (Patient has one daughter no major medical problem.) General Exam - General Exam Comments Initial Comments: Visual Physical Exam Vital signs reviewed General: Well-appearing, nontoxic, no acute distress. Head: Normocephalic, atraumatic Eyes: PERRLA, EOMI ENT: Airway patent Chest: Nonlabored breathing Skin: No visual rash, normal skin tone Neuro: Alert and oriented 3 Musculoskeletal: No gross abnormalities Limitations: no limitations General appearance: alert, in no apparent distress Head exam: Present: atraumatic, normocephalic Eye exam: Present: normal appearance, EOMI Neck exam: Present: normal inspection Respiratory exam: Absent: respiratory distress Cardiovascular Exam: Present: tachycardia Neurological exam: Present: alert, oriented X3 Psychiatric exam: Present: normal affect, normal mood Skin exam: Present: warm, dry Course Vital Signs 04/02/23 04/02/23 04/02/23 21:14 23:57 23:58 Temperature 97.5 F L Pulse Rate 110 H 112 H Respiratory 22 18 Rate Blood Pressure 138/73 154/96 O2 Sat by Pulse 100 98 Oximetry Medical Decision Making - Medical Decision Making Was pt. sent in by a medical professional or institution (, PA, MASSAGE COORDINATOR, urgent care, hospital, or fci...) When possible be specific @ -No Did you speak to anyone other than the patient for history (EMS, parent, family, police, friend...)? What history was obtained from this source @ -No Did you review nursing and triage notes (agree or disagree)? Why? @ -I reviewed and agree with nursing and triage notes Were old charts reviewed (outside hosp., previous admission, EMS record, old EKG, old radiological studies, urgent care reports/EKG's, fci records)? Report findings @ -No old charts were reviewed Differential Diagnosis (chest pain, altered mental status, abdominal pain women, abdominal pain men, vaginal bleeding, weakness, fever, dyspnea, syncope, headache, dizziness, GI bleed, back pain, seizure, CVA, palpatations, mental health, musculoskeletal)? @ -not applicable EKG interpreted by me (3pts min.). @ -As above X-rays interpreted by me (1pt min.). @ -None done CT interpreted by me (1pt min.). @ -None done U/S interpreted by me (1pt. min.). @ -None done What testing was considered but not performed or refused? (CT, X-rays, U/S, labs)? Why? @ -None What meds were considered but not given or refused? Why? @ -None Did you discuss the management of the patient with other professionals (professionals i.e. , PA, MASSAGE COORDINATOR, lab, RT, psych nurse, social services technician, photographer helper, teacher, water resources technical officer, case picker)? Give summary @ -I spoke with the [facility] attending who accepted transfer Was smoking cessation discussed for >3mins.? @ -No Was critical care preformed (if so, how long)? @ -No Were there social determinants of health that impacted care today? How? (Homelessness, low income, unemployed, alcoholism, drug addiction, transportation, low edu. Level, literacy, decrease access to med. care, alf, rehab)? @ -No Was there de-escalation of care discussed even if they declined (Discuss DNR or withdrawal of care, Hospice)? DNR status @ -No What co-morbidities impacted this encounter? (DM, HTN, Smoking, COPD, CAD, Cancer, CVA, ARF, Chemo, Hep., AIDS, mental health diagnosis, sleep apnea, morbid obesity)? @ -None Was patient admitted / discharged? Hospital course, mention meds given and route, prescriptions, significant lab abnormalities, going to OR and other pertinent info. @ -42-year-old female presenting with chief complaint of chicken stuck in her throat. This occurred while eating dinner this evening. She is able to handle her secretions. Patient was given glucagon, Ativan, nitro, she was also given soda to help dislodge the bolus. Attempts were unsuccessful. We do not have GI services patient will require transfer. Patient is accepted for transfer at [facility]. Patient is agreeable to this plan. I discussed this case with my attending Dr. Paz Undiagnosed new problem with uncertain prognosis? @ -No Drug Therapy requiring intensive monitoring for toxicity (Heparin, Nitro, Insulin, Cardizem)? @ -No Were any procedures done? @ -No Diagnosis/symptom? @ -Food impaction of the esophagus Acute, or Chronic, or Acute on Chronic? @ -acute Uncomplicated (without systemic symptoms) or Complicated (systemic symptoms)? @ -Complicated Side effects of treatment? @ -No Exacerbation, Progression, or Severe Exacerbation? @ -No Poses a threat to life or bodily function? How? (Chest pain, [place], [place], pneumonia, PE, COPD, DKA, ARF, appy, cholecystitis, CVA, Diverticulitis, Homicidal, Suicidal, threat to staff... and all critical care pts) @ -yes Disposition Clinical Impression: Esophageal obstruction due to food impaction Disposition: OTHER INSTITUTION NOT DEFINED Condition: Fair Referrals: Tee Lawson DO [Primary Care Provider] - 1-2 days Time of Disposition: 00:35 - Out of Hospital Transfer - Req. Specs Out of Hospital Transfer - Requested Specifics: Other Emergency Center ([facility])
[2023-04-02] MEDS ORDERED: LORazepam 2 MG/ML INJ IM STA (23:38)
[2023-04-02] MEDS ORDERED: NITROGLYCERIN SL TABS 0.4 MG TAB SUBLINGUAL STA (23:50)
[2023-04-03 00:06] VITALS: BP 154/96; PULSE 112; RESP 18
== END 2023-04-03 01:37 | disposition other institution (70) ==
LOC: EC 20:52
DX: T18.128A Food in esophagus causing other injury, initial encounter (principal); M19.90 Unspecified osteoarthritis, unspecified site; G47.30 Sleep apnea, unspecified; Z86.59 Personal history of other mental and behavioral disorders; Z79.1 Long term (current) use of non-steroidal anti-inflammatories (NSAID)
CPT/HCPCS: 70360; 99284; 96372 ×2; J2060; J1610